=== PATIENT | female | born 1980 | race Caucasian/White ===

== ENCOUNTER 2018-06-26 11:12 | Emergency (ER) | payer OTHER ==
[~2018-06-26] VITALS: Ht 180.3 cm; Wt 76.7 kg
[2018-06-26] MEDS ORDERED: KETO10TA2 PO (15:13)
[2018-06-26] MEDS ORDERED: NORFLEX100MG PO (15:13)
== END 2018-06-26 15:23 | disposition home or self-care (01) ==
LOC: ER 11:12
DX: S30.0XXA Contusion of lower back and pelvis, initial encounter (principal); S10.83XA Contusion of other specified part of neck, initial encounter; M54.5 Low back pain; M54.2 Cervicalgia; V49.9XXA Car occupant (driver) (passenger) injured in unspecified traffic accident, initial encounter; Y93.89 Activity, other specified; Y92.488 Other paved roadways as the place of occurrence of the external cause; Y99.8 Other external cause status

== ENCOUNTER 2019-05-21 22:55 | Emergency (ER) | payer OTHER ==
[~2019-05-21] VITALS: Ht 180.3 cm; Wt 65.8 kg
[~2019-05-21 22:55] MED LIST: KETO10TA2 PO; NORFLEX100MG PO
[2019-05-22] MEDS ORDERED: CLONAZEPAM1 MG PO (03:43)
[2019-05-22] MEDS ORDERED: LEXAPRO20 MG PO (03:43)
== END 2019-05-22 04:03 | disposition home or self-care (01) ==
LOC: ER 22:55
DX: R11.2 Nausea with vomiting, unspecified (principal); R51 Headache; T42.4X5A Adverse effect of benzodiazepines, initial encounter

== ENCOUNTER 2021-08-11 08:53 | Outpatient (CLI) | payer OTHER ==
[~2021-08-11 08:53] MED LIST changes: +CLONAZEPAM1 MG PO; +LEXAPRO20 MG PO
== END 2021-08-11 10:35 | disposition home or self-care (01) ==
LOC: PRENATAL 08:53
PROVIDERS: ATTEND Obstetrics & Gynecology Maternal & Fetal Medicine
DX: O26.842 Uterine size-date discrepancy, second trimester (principal); O35.0XX1 Maternal care for (suspected) central nervous system malformation in fetus, fetus 1; O09.522 Supervision of elderly multigravida, second trimester; O28.1 Abnormal biochemical finding on antenatal screening of mother; Z36.89 Encounter for other specified antenatal screening; Z3A.22 22 weeks gestation of pregnancy

== ENCOUNTER 2022-11-13 20:34 | Emergency (ER) | payer OTHER ==
[~2022-11-13] VITALS: Ht 180.3 cm; Wt 70.3 kg
[2022-11-13] MEDS ORDERED: ZITHROMAX500 MG PO (21:34)
== END 2022-11-13 21:50 | disposition home or self-care (01) ==
LOC: ER 20:34
DX: J32.9 Chronic sinusitis, unspecified (principal); Z88.2 Allergy status to sulfonamides

== ENCOUNTER 2023-07-25 18:21 | Emergency (ER) | payer OTHER ==
[~2023-07-25] VITALS: Ht 180.3 cm; Wt 68.0 kg
[~2023-07-25 18:21] MED LIST changes: +ZITHROMAX500 MG PO
[2023-07-25 19:56] LABS: HEMATOCRIT 40.5 % (36.0-45.00); HEMOGLOBIN 13.3 g/dL (12.0-15.00); MEAN CELL VOLUME 83.5 fL (80.00-100.00); MEAN CORPUSCULAR HEMOGLOBIN 27.5 pg (27.00-32.0); MEAN CORPUSCULAR HGB CONC 32.9 g/dl (32.0-36.0); PLATELET COUNT 245 K/uL (150-450); RED BLOOD COUNT 4.85 M/uL (4.00-6.00); RED CELL DISTRIBUTION WIDTH 13.7 % (11.5-14.5)
[2023-07-25 20:16] LABS: BILIRUBIN TOTAL 0.44 mg/dL (0.3-1.2); CALCIUM 9.1 mg/dL (8.5-10.1); CREATININE SERUM 0.84 mg/dL (0.55-1.02); GFR 74.35; GLOBULINA 4.1 G/DL (2.4-3.5); POTASSIUM 3.72 mEq/L (3.5-5.1); TOTAL PROTEIN 8.1 gm/dL (6.4-8.2)
[2023-07-25] MEDS ORDERED: PEPCID20 MG PO (20:45)
[2023-07-25] MEDS ORDERED: LEVSIN/SL0.125 MG SL (20:45)
[2023-07-25] MEDS ORDERED: ONDANSETRON ODT8 MG PO (20:45)
[2023-07-25] MEDS ORDERED: CARAFATE1 GM PO (20:45)
== END 2023-07-25 21:21 | disposition home or self-care (01) ==
LOC: ER 18:21
PROVIDERS: General Practice
DX: K29.70 Gastritis, unspecified, without bleeding (principal)

== ENCOUNTER 2025-01-03 14:52 | Emergency (ER) | payer OTHER ==
[~2025-01-03] VITALS: Ht 180.3 cm; Wt 77.1 kg
[~2025-01-03 14:52] MED LIST changes: +CARAFATE1 GM PO; +LEVSIN/SL0.125 MG SL; +ONDANSETRON ODT8 MG PO; +PEPCID20 MG PO
[2025-01-03] MEDS ORDERED: ORPHENADRINE CITRATE 30 MG/ML AMPUL IM ONE (17:00)
[2025-01-03] MEDS ORDERED: KETOROLAC TROMETHAMINE 60 MG VIAL IM ONE ×2 (17:00→18:26)
[2025-01-03] MEDS ORDERED: ORPHENADRINE CITRATE 30 MG/ML AMPUL ONE (18:26)
== END 2025-01-03 18:44 | disposition home or self-care (01) ==
LOC: ER 14:52
DX: M62.830 Muscle spasm of back (principal); Z88.2 Allergy status to sulfonamides